=== PATIENT | female | born 1975 | race Caucasian/White ===

== ENCOUNTER 2018-10-18 08:08 | Inpatient (IN) | payer MEDICAID ==
[2018-10-10 11:42] LABS: ADD MAN DIFF? NO
[2018-10-10 11:44] LABS: WHITE BLOOD COUNT 10.2 10^3/ul (4.8-10.8)
[2018-10-10 11:44] LABS: BASOPHIL # 0.1 10^3/ul (0.0-0.1); BASOPHILS % 0.5 % (0.0-2.0); EOSINOPHILS # 0.1 10^3/ul (0.0-0.5); EOSINOPHILS % 1.4 % (0.0-7.0); HEMATOCRIT 39.5 % (37.0-47.0); HEMOGLOBIN 12.9 g/dl (12.0-16.0); LYMPHOCYTES # 2.6 10^3/ul (0.8-2.9); LYMPHOCYTES % 25.1 % (15.0-51.0); MEAN CORPUSCULAR HEMOGLOBIN 28.6 pg (29.0-33.0); MEAN CORPUSCULAR HGB CONC 32.7 g/dl (32.0-37.0); MEAN CORPUSCULAR VOLUME 87.6 fl (82.0-101.0); MEAN PLATELET VOLUME 9.8 fl (7.4-10.4); MONOCYTE # 0.5 10^3/ul (0.3-0.9); MONOCYTES % 5.3 % (0.0-11.0); NEUTROPHIL # 6.9 10^3/ul (1.6-7.5); NEUTROPHILS % 67.1 % (39.0-77.0); PLATELET COUNT 308 10^3/UL (140-415); RED BLOOD COUNT 4.51 10^6/ul (4.20-5.40); RED CELL DISTRIBUTION WIDTH 12.8 % (11.5-14.5)
[2018-10-10 12:00] LABS: ALANINE AMINOTRANSFERASE 53 IU/L (13-69); ALBUMIN 4.1 g/dl (3.3-4.9); ALBUMIN/GLOBULIN RATIO 1.24; ALKALINE PHOSPHATASE 87 IU/L (42-121); ANION GAP 9 (5-13); ASPARTATE AMINO TRANSFERASE 29 IU/L (15-46); BILIRUBIN,INDIRECT 0.6 mg/dl (0-1.1); BILIRUBIN,TOTAL 0.6 mg/dl (0.2-1.3); BLOOD UREA NITROGEN 15 mg/dl (7-20); CALCIUM 9.2 mg/dl (8.4-10.2); CARBON DIOXIDE 27 mmol/L (21-31); CHLORIDE 103 mmol/L (97-110); CREATININE 0.77 mg/dl (0.44-1.00); Estimated GFR > 60 mL/min (>60); GLUCOSE 231 mg/dl (70-220); POTASSIUM 4.1 mmol/L (3.5-5.1); SODIUM 139 mmol/L (135-144); TOTAL PROTEIN 7.4 g/dl (6.1-8.1)
[2018-10-10 12:04] LABS: INR 0.89; PARTIAL THROMBOPLASTIN TIME 25.8 Sec (23.0-35.0); PROTIME 12.2 Sec (11.9-14.9)
[2018-10-18] MEDS: DEXTROSE 5%-0.45% NACL 1,000 ML IV (06:00)
[~2018-10-18 08:08] MED LIST: CEFAZOLIN 2 GM/50 ML (PMX) 50 ML IVPB
[2018-10-18] MEDS ORDERED: MIDAZOLAM 1 MG/ML 2 ML INJ (13:22)
[2018-10-18] MEDS ORDERED: LIDOCAINE 2% (SDV) 5 ML INJ ×2 (13:22→13:36)
[2018-10-18] MEDS ORDERED: ONDANSETRON 4 MG INJ (13:36)
[2018-10-18] MEDS ORDERED: DEXAMETHASONE 4 MG/ML 5 ML INJ (13:36)
[2018-10-18] MEDS ORDERED: CEFAZOLIN 1 GM INJ (13:36)
[2018-10-18] MEDS ORDERED: PROPOFOL 20 ML ×2 (13:36→13:39)
[2018-10-18] MEDS ORDERED: FAMOTIDINE 20 MG INJ (13:44)
[2018-10-18] MEDS: GENTAMICIN 80 MG INJ (14:04)
[2018-10-18] MEDS: BUPIVACAINE 0.25% (MPF) 30 ML INJ (14:04)
[2018-10-18] MEDS: LIDOCAINE 1%/EPI 30 ML INJ (14:04)
[2018-10-18] MEDS: POLYMYXIN/BACITRACIN 1L IRRIG (14:05)
[2018-10-18] MEDS: MUPIROCIN 2% 15 GM CR (14:05)
[2018-10-18] MEDS ORDERED: HYDROmorphONE 2 MG/ML SYG (14:29)
[2018-10-18] MEDS ORDERED: GENTAMICIN 80 MG INJ (15:16)
[2018-10-18] MEDS ORDERED: hydrALAzine 20 MG INJ IV (15:30)
[2018-10-18] MEDS ORDERED: MEPERIDINE 25 MG INJ IV (15:30)
[2018-10-18] MEDS ORDERED: LABETALOL HCL 20MG INJ IV (15:30)
[2018-10-18] MEDS ORDERED: FENTAnyl 50 MCG/ML VIAL IV (15:30)
[2018-10-18] MEDS ORDERED: DIPHENHYDRAMINE 50 MG INJ IV (15:30)
[2018-10-18] MEDS ORDERED: HYDROmorphONE 1 MG/5 ML IV SYRINGE IV (15:30)
[2018-10-18] MEDS ORDERED: ONDANSETRON 4 MG INJ IV ×2 (15:30)
[2018-10-18] MEDS ORDERED: LABETALOL HCL 20MG INJ (16:18)
[2018-10-18] MEDS: ACETAMINOPHEN 1000MG/100ML IV 100 ML IVPB ×2 (17:00→22:52)
[2018-10-18] MEDS ORDERED: FENTAnyl 50 MCG/ML VIAL (17:32)
[2018-10-18] MEDS: HYDROmorphONE 1 MG/5 ML IV SYRINGE IV ×2 (18:15→19:09)
[2018-10-18] MEDS: GENTAMICIN 160 MG in DEXTROSE 5% 100 ML IVPB (18:18)
[2018-10-18] MEDS ORDERED: DEXTROSE 50% 50 ML SYRINGE IV ×2 (18:30)
[2018-10-18] MEDS ORDERED: GLUCOSE GEL 15 GRAM TUBE PO ×2 (18:30)
[2018-10-18] MEDS ORDERED: GLUCAGON 1 MG INJ IM (18:30)
[2018-10-18] MEDS ORDERED: GLUCOSE GEL 15 GRAM TUBE BUCCAL (18:30)
[2018-10-18] MEDS ORDERED: CEFAZOLIN 1 GM/50 ML (PMX) 50 ML IVPB (18:30)
[2018-10-18] MEDS: INSULIN ASPART [NOVOLOG] 3 ML PEN SC ×2 (19:05→23:39)
[2018-10-18] MEDS: FENTAnyl 50 MCG/ML VIAL IV ×2 (19:21→19:32)
[2018-10-18] MEDS: morphine 2 MG INJ IV ×2 (20:10→21:07)
[2018-10-18] MEDS: D5W-0.45 NACL + KCL 20 MEQ 1,000 ML IV ×2 (20:43→23:23)
[2018-10-18] MEDS: CEFAZOLIN 1 GM/50 ML (PMX) 50 ML IVPB (20:43)
[2018-10-18] MEDS ORDERED: ALBUTEROL HFA 8 GM INHALER INH (21:00)
[2018-10-18] MEDS ORDERED: morphine 1 MG/ML 30 ML (PCA) IV (22:30)
[2018-10-18] MEDS: morphine 1 MG/ML 30 ML (PCA) IV (23:30)
[2018-10-19] MEDS: morphine 1 MG/ML 30 ML (PCA) IV ×3 (05:31→20:08)
[2018-10-19] MEDS: D5W-0.45 NACL + KCL 20 MEQ 1,000 ML IV (07:55)
[2018-10-19] MEDS: INSULIN ASPART [NOVOLOG] 3 ML PEN SC ×4 (08:56→21:04)
[2018-10-19] MEDS: SOD CHLORIDE 0.45% 1,000 ML IV (15:30)
[2018-10-19] MEDS: metFORMIN 500 MG TAB PO (18:17)
[2018-10-19] MEDS: ATORVASTATIN 40 MG TAB PO (20:11)
[2018-10-20] MEDS: morphine 1 MG/ML 30 ML (PCA) IV ×4 (03:39→19:49)
[2018-10-20 05:07] LABS: ADD MAN DIFF? NO
[2018-10-20 05:09] LABS: WHITE BLOOD COUNT 11.9 10^3/ul (4.8-10.8)
[2018-10-20 05:09] LABS: BASOPHIL # 0.1 10^3/ul (0.0-0.1); BASOPHILS % 0.4 % (0.0-2.0); EOSINOPHILS # 0.1 10^3/ul (0.0-0.5); EOSINOPHILS % 0.5 % (0.0-7.0); HEMATOCRIT 35.6 % (37.0-47.0); HEMOGLOBIN 11.2 g/dl (12.0-16.0); LYMPHOCYTES # 2.7 10^3/ul (0.8-2.9); MEAN CORPUSCULAR HEMOGLOBIN 28.4 pg (29.0-33.0); MEAN CORPUSCULAR HGB CONC 31.5 g/dl (32.0-37.0); MEAN CORPUSCULAR VOLUME 90.4 fl (82.0-101.0); MEAN PLATELET VOLUME 9.6 fl (7.4-10.4); MONOCYTE # 0.8 10^3/ul (0.3-0.9); MONOCYTES % 6.6 % (0.0-11.0); NEUTROPHIL # 8.2 10^3/ul (1.6-7.5); NEUTROPHILS % 68.9 % (39.0-77.0); PLATELET COUNT 256 10^3/UL (140-415); RED BLOOD COUNT 3.94 10^6/ul (4.20-5.40); RED CELL DISTRIBUTION WIDTH 13.4 % (11.5-14.5)
[2018-10-20 05:38] LABS: ANION GAP 8 (5-13); BLOOD UREA NITROGEN 7 mg/dl (7-20); CARBON DIOXIDE 28 mmol/L (21-31); CHLORIDE 102 mmol/L (97-110); CREATININE 0.57 mg/dl (0.44-1.00); Estimated GFR > 60 mL/min (>60); GLUCOSE 204 mg/dl (70-220); POTASSIUM 3.7 mmol/L (3.5-5.1); SODIUM 138 mmol/L (135-144)
[2018-10-20] MEDS: LISINOPRIL 10 MG TAB PO (08:39)
[2018-10-20] MEDS: SOD CHLORIDE 0.45% 1,000 ML IV (08:39)
[2018-10-20] MEDS: metFORMIN 500 MG TAB PO ×2 (08:45→17:54)
[2018-10-20] MEDS: INSULIN ASPART [NOVOLOG] 3 ML PEN SC ×4 (08:50→21:19)
[2018-10-20] MEDS ORDERED: HYDROCODONE/APAP (5/325) TAB PO (10:30)
[2018-10-20] MEDS: HYDROCODONE/APAP (5/325) TAB PO ×3 (10:52→20:52)
[2018-10-20] MEDS: PATIENT'S OWN MEDICATION PO ×2 (13:37→20:52)
[2018-10-20] MEDS: ATORVASTATIN 40 MG TAB PO (20:52)
[2018-10-20] MEDS: MAGNESIUM HYDROXIDE 30ML CUP PO (20:54)
[2018-10-21] MEDS: HYDROCODONE/APAP (5/325) TAB PO ×5 (00:35→21:38)
[2018-10-21] MEDS: SOD CHLORIDE 0.45% 1,000 ML IV ×2 (02:22→16:30)
[2018-10-21] MEDS: morphine 1 MG/ML 30 ML (PCA) IV ×2 (07:27→21:31)
[2018-10-21] MEDS: metFORMIN 500 MG TAB PO ×2 (08:43→17:59)
[2018-10-21] MEDS: LISINOPRIL 10 MG TAB PO (08:44)
[2018-10-21] MEDS: PATIENT'S OWN MEDICATION PO ×2 (08:45→21:32)
[2018-10-21] MEDS: INSULIN ASPART [NOVOLOG] 3 ML PEN SC ×4 (08:45→21:42)
[2018-10-21] MEDS: ATORVASTATIN 40 MG TAB PO (21:31)
[2018-10-21] MEDS: MAGNESIUM HYDROXIDE 30ML CUP PO (21:32)
[2018-10-22 05:23] LABS: ADD MAN DIFF? NO
[2018-10-22 05:33] LABS: BASOPHIL # 0.1 10^3/ul (0.0-0.1); BASOPHILS % 0.7 % (0.0-2.0); EOSINOPHILS # 0.2 10^3/ul (0.0-0.5); EOSINOPHILS % 2.5 % (0.0-7.0); HEMATOCRIT 34.4 % (37.0-47.0); LYMPHOCYTES # 2.9 10^3/ul (0.8-2.9); LYMPHOCYTES % 34.2 % (15.0-51.0); MEAN CORPUSCULAR HEMOGLOBIN 28.8 pg (29.0-33.0); MEAN CORPUSCULAR VOLUME 90.1 fl (82.0-101.0); MEAN PLATELET VOLUME 9.6 fl (7.4-10.4); MONOCYTE # 0.5 10^3/ul (0.3-0.9); MONOCYTES % 6.4 % (0.0-11.0); NEUTROPHIL # 4.7 10^3/ul (1.6-7.5); NEUTROPHILS % 55.4 % (39.0-77.0); PLATELET COUNT 271 10^3/UL (140-415); RED BLOOD COUNT 3.82 10^6/ul (4.20-5.40); RED CELL DISTRIBUTION WIDTH 13.4 % (11.5-14.5)
[2018-10-22 05:33] LABS: WHITE BLOOD COUNT 8.5 10^3/ul (4.8-10.8)
[2018-10-22] MEDS: HYDROCODONE/APAP (5/325) TAB PO ×3 (05:33→23:54)
[2018-10-22] MEDS: metFORMIN 500 MG TAB PO ×2 (08:51→18:50)
[2018-10-22] MEDS: LISINOPRIL 10 MG TAB PO (08:52)
[2018-10-22] MEDS: PATIENT'S OWN MEDICATION PO ×2 (08:52→20:32)
[2018-10-22] MEDS: INSULIN ASPART [NOVOLOG] 3 ML PEN SC ×4 (08:53→20:35)
[2018-10-22] MEDS: SOD CHLORIDE 0.45% 1,000 ML IV (09:10)
[2018-10-22] MEDS: ATORVASTATIN 40 MG TAB PO (20:33)
[2018-10-22] MEDS: MAGNESIUM HYDROXIDE 30ML CUP PO (20:33)
[2018-10-23] MEDS: HYDROCODONE/APAP (5/325) TAB PO (07:20)
[2018-10-23] MEDS: PATIENT'S OWN MEDICATION PO (09:09)
[2018-10-23] MEDS: LISINOPRIL 10 MG TAB PO (09:09)
[2018-10-23] MEDS: metFORMIN 500 MG TAB PO (09:09)
[2018-10-23] MEDS: INSULIN ASPART [NOVOLOG] 3 ML PEN SC (09:10)
== END 2018-10-23 12:30 | disposition home or self-care (01) | DRG 581 ==
LOC: REC 08:08 → MS1 19:48
PROC: 0HTV0ZZ Resection of Bilateral Breast, Open Approach (ICD-10-PCS; principal; 2018-10-18 12:00)
PROC: 07T60ZZ Resection of Left Axillary Lymphatic, Open Approach (ICD-10-PCS; 2018-10-18 12:00)
PROC: 0HHV0NZ Insertion of Tissue Expander into Bilateral Breast, Open Approach (ICD-10-PCS; 2018-10-18 12:00)
PROC: 0HRV0JZ Replacement of Bilateral Breast with Synthetic Substitute, Open Approach (ICD-10-PCS; 2018-10-18 12:00)
DX: C50.912 Malignant neoplasm of unspecified site of left female breast (principal); E11.9 Type 2 diabetes mellitus without complications; I10 Essential (primary) hypertension; E78.5 Hyperlipidemia, unspecified; J45.20 Mild intermittent asthma, uncomplicated; Z79.4 Long term (current) use of insulin
CPT/HCPCS: 71045; 80048; 80053; 82962; 83036; 84703; 85025; 85610; 85730; 88309; 93005